=== PATIENT | female | born 1990 | race Caucasian/White ===

== ENCOUNTER 2020-10-30 12:18 | Emergency (ER) | payer OTHER, BC, SELFPAY ==
[2020-10-30] VITALS (8 sets, daily range): BP systolic 118–146; BP diastolic 56–85; PULSE 82–107; RESP 11–20; TEMP 36.6; O2SAT 94–99; BMI 25.8
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
--- NOTE | 2020-10-30 12:32 | PC.NURSE ---
Rad at bedside
[2020-10-30 13:04] LABS: HCG Qualitative, Serum Negative (Negative)
== END 2020-10-30 13:56 | disposition home or self-care (01) ==
PROVIDERS: Emergency Provider Emergency Medicine; PCP General Practice
DX: S40.012A Contusion of left shoulder, initial encounter (principal); V49.3XXA Car occupant (driver) (passenger) injured in unspecified nontraffic accident, initial encounter; Y92.488 Other paved roadways as the place of occurrence of the external cause
CPT/HCPCS: 71045; 72170; 73030; 84703; 99281

== ENCOUNTER 2021-09-10 07:00 | Emergency (ER) | payer BC, SELFPAY ==
[2021-09-10] VITALS (18 sets, daily range): BP systolic 111–146; BP diastolic 55–90; PULSE 90–106; RESP 14–18; TEMP 36.9; O2SAT 95–100; BMI 28.9; BMI 29.0
--- NOTE | 2021-09-10 07:03 | PC.NURSE ---
Nurse speaking with poison control at this time
--- NOTE | 2021-09-10 07:17 | ECG_ITS ---
APPROVED REPORT Exam: Resting ECG HR:103 bpm ECG Measurements Heart Rate 103 AXES WA 148 P 57 QRSd 92 QRS 58 QT 339 T 37 QTc 399 Conclusion SINUS TACHYCARDIA WITH OCCASIONAL VENTRICULAR PREMATURE COMPLEXES ABNORMAL RHYTHM ECG UNCONFIRMED REPORT Electronically signed by : Antonio Walker MD 09/12/2021 21:13:19
--- NOTE | 2021-09-10 07:26 | PC.NURSE ---
Passed on in nursing report from MARANDA Gallego who spoke with poison control... Nurse stated that poison control advised to monitor pt x6 hours from ingestion of Gabapentin. Stated to monitor for hypotension, ataxia, tachycardia and myoclonic-like seizures. Advised to administer activated charcoal PO.
--- NOTE | 2021-09-10 07:26 | PC.NURSE ---
Rn at [facility] as well. [employer] tier and assessing pt. PT is given charcoal to drink
[2021-09-10 07:37] LABS: Basophils # 0.2 K/mm3 (0-0.2); Basophils % 2.6 % (0.1-2.0); Eosinophils # 0.2 K/mm3 (0.0-0.4); Hematocrit 41.8 % (37.0-47.0); Hemoglobin 13.7 g/dL (12.2-16.2); Lymphocytes # 2.7 K/mm3 (0.7-4.5); Mean Corpuscular HGB Conc 32.8 g/dL (31.8-35.4); Mean Corpuscular Volume 100.7 fl (81-99); Mean Platelet Volume 7.7 fl (7.4-10.4); Monocytes # 0.5 K/mm3 (0.1-1.0); Monocytes % 5.9 % (1.7-9.3); Neutrophils # 4.3 K/mm3 (1.8-7.8); Neutrophils % 54.5 % (37.0-80.0); Platelet Count 275 K/mm3 (142-424); Red Blood Count 4.14 M/mm3 (4.20-5.40); Red Cell Distribution Width 13.8 % (11.5-17.5); White Blood Count 7.8 K/mm3 (4.8-10.8)
[2021-09-10 07:40] LABS: Microscopic, Urine URINE MICROSCOPIC (MICROSCOPIC)
--- NOTE | 2021-09-10 07:40 | PC.NURSE ---
Pt has finished drinking activated charcoal at this time. system support technician sitting at bs.
[2021-09-10 07:42] LABS: Alanine Aminotransferase 18 U/L (12-78); Albumin Level 4.2 g/dl (3.5-5.0); Albumin/Globulin Ratio 1.6 (1.1-1.8); Alkaline Phosphatase 57 U/L (38-126); Anion Gap 4.8 mEq/L (5-15); Aspartate Amino Transferase 24 U/L (14-36); Bilirubin,Total 0.2 mg/dl (0.2-1.3); Blood Urea Nitrogen 10 mg/dl (7-17); Calcium 8.7 mg/dl (8.4-10.2); Carbon Dioxide 27 mmol/L (22.0-30.0); Chloride 114 mmol/L (98-107); Creatinine Clearance Estimated 147 mL/min (50-200); Estimated Glomerular Filt Rate 96 ml/min (>60); Ethyl Alcohol 30 mg/dl (0-10); GFR (African American) 117 ML/MIN (>60); Globulin 2.6 g/dL (1.3-3.2); Glucose 86 mg/dl (74-100); Potassium 3.8 mmoL/L (3.5-5.1); Sodium 142 mmol/L (136-145); Total Protein,Serum 6.8 g/dl (6.3-8.2)
[2021-09-10 07:46] LABS: Appearance,Urine CLEAR (Clear); Bilirubin,Urine Negative (Negative); Blood, Urine Negative (Negative); Color,Urine YELLOW (Yellow); Glucose,Urine (UA) Negative (Negative); Ketones,Urine Negative (Negative); Leukocyte Esterase,Urine Negative (Negative); Nitrate,Urine Negative (Negative); Protein,Urine Negative (Negative); Specific Gravity, Urine >= 1.030 (1.005-1.030); Urobilinogen,Urine 0.2 EU/dl (0.2)
[2021-09-10 07:49] LABS: Acetaminophen < 10 ug/ml (10-30); Salicylate < 1.0 mg/dL (2.0-20.0)
--- NOTE | 2021-09-10 07:55 | HMH.EDOD ---
ED Disposition Clinical Impression: Overdose by ingestion Depression Qualifiers: Depression Type: major depressive disorder Major depression recurrence: unspecified whether recurrent Active/Remission status: currently active Psychotic features: without psychotic features Disposition: Home, Self-Care Condition on Discharge: Fair Instructions: Depression (Mild to Moderate) (Alternative Therapy) Additional Instructions: Please follow-up with your mental health fashionably within the next few days. Do this even if you feel well. Return immediately to the emergency department if you feel worse in any way. Do not drive or operate any machinery today. Your work-up in the emergency department today did not reveal any immediately life-threatening conditions. Take your medications only as prescribed. Referrals: Provider,Referral, [Primary Care Provider] - - Critical Care Critical Care Time: No Attestation: On , the high probability of a clinically significant, sudden or life threatening deterioration of the following system(s) required my full and direct attention, intervention and personal management. The time I documented below is in addition to time spent performing reported procedures but includes the following listed in this critical care notation. Medical Decision Making - Medical Records Medical records reviewed: Yes: I reviewed the patient's medical records. - Claude Inquiry Pt receiving controlled substance: No Vital Signs: 09/10/21 07:01 09/10/21 07:27 09/10/21 07:30 Temperature 98.5 F Temperature Source Oral Pulse Rate 106 H 106 H Pulse Rate [Radial] 106 H Respiratory Rate 16 15 15 Blood Pressure 119/80 128/72 Blood Pressure [Right Arm] 119/80 Blood Pressure Mean 89 89 Blood Pressure Mean [Right Arm] 93 Blood Pressure Position [Right Arm] Sitting 02 Sat by Pulse Oximetry 98 100 100 Oxygen Delivery Method Room Air 09/10/21 08:00 09/10/21 08:30 09/10/21 09:00 Temperature Temperature Source Pulse Rate 100 H 98 H 98 H Pulse Rate [Radial] Respiratory Rate 18 15 15 Blood Pressure 112/55 L 111/60 112/67 Blood Pressure [Right Arm] Blood Pressure Mean 74 71 77 Blood Pressure Mean [Right Arm] Blood Pressure Position [Right Arm] 02 Sat by Pulse Oximetry 98 95 96 Oxygen Delivery Method 09/10/21 09:15 09/10/21 09:30 09/10/21 09:45 Temperature Temperature Source Pulse Rate 100 H 97 H 97 H Pulse Rate [Radial] Respiratory Rate 14 15 Blood Pressure 120/67 118/65 121/66 Blood Pressure [Right Arm] Blood Pressure Mean 79 73 79 Blood Pressure Mean [Right Arm] Blood Pressure Position [Right Arm] 02 Sat by Pulse Oximetry 97 96 96 Oxygen Delivery Method 09/10/21 10:00 09/10/21 10:15 09/10/21 10:43 Temperature Temperature Source Pulse Rate 98 H 101 H 104 H Pulse Rate [Radial] Respiratory Rate 15 16 16 Blood Pressure 123/77 120/74 146/81 H Blood Pressure [Right Arm] Blood Pressure Mean 87 86 93 Blood Pressure Mean [Right Arm] Blood Pressure Position [Right Arm] 02 Sat by Pulse Oximetry 96 96 96 Oxygen Delivery Method 09/10/21 10:46 09/10/21 11:00 09/10/21 11:15 Temperature Temperature Source Pulse Rate 104 H 96 H 96 H Pulse Rate [Radial] Respiratory Rate 18 16 Blood Pressure 133/80 127/78 122/58 L Blood Pressure [Right Arm] Blood Pressure Mean 96 94 79 Blood Pressure Mean [Right Arm] Blood Pressure Position [Right Arm] 02 Sat by Pulse Oximetry 97 97 98 Oxygen Delivery Method 09/10/21 11:30 09/10/21 11:45 Temperature Temperature Source Pulse Rate 92 H 99 H Pulse Rate [Radial] Respiratory Rate 16 16 Blood Pressure 136/71 121/72 Blood Pressure [Right Arm] Blood Pressure Mean 89 82 Blood Pressure Mean [Right Arm] Blood Pressure Position [Right Arm] 02 Sat by Pulse Oximetry 96 96 Oxygen Delivery Method - Lab Data Lab results reviewed: Yes: I reviewed the
[2021-09-10 07:57] LABS: Barbiturates Screen,Urine Negative ng/ml (<200); Benzodiazepines Screen,Urine Negative ng/ml (<200)
[2021-09-10 07:58] LABS: Amphetamine/Metha Screen,Urine Negative ng/ml (<1000)
[2021-09-10 07:59] LABS: Cocaine Screen,Urine Negative ng/ml (<300); Methadone Screen,Urine Negative ng/ml (<300)
[2021-09-10 08:00] LABS: Cannabinoid Screen,Urine Negative ng/ml (<50); Urine Pregnancy, HCG Qual. Negative (Negative)
[2021-09-10 08:01] LABS: Opiate Screen,Urine Positive ng/ml (<300); Phencyclidine Screen,Urine Positive ng/ml (<25)
--- NOTE | 2021-09-10 08:02 | PC.NURSE ---
Md in to talk to and assess the pt
[2021-09-10 08:03] LABS: RBC,Urine Occasional #/hpf (0-3); Squamous Epithelial Cell,Urine Occasional #/hpf (0-5)
--- NOTE | 2021-09-10 08:19 | PC.NURSE ---
Pt sleeping comfortably
--- NOTE | 2021-09-10 08:31 | PC.NURSE ---
rn getting covid swab
--- NOTE | 2021-09-10 08:39 | PC.NURSE ---
pt sleeping in bed Tech at BS
[2021-09-10 08:40] LABS: Coronavirus 19, PCR Not Detected (NotDetected); Influenza A, PCR Not Detected (NotDetected); Influenza B, PCR Not Detected (NotDetected)
--- NOTE | 2021-09-10 10:33 | PC.NURSE ---
pt went to the restroom
--- NOTE | 2021-09-10 10:43 | PC.NURSE ---
pt back in bed from [facility]roo
--- NOTE | 2021-09-10 11:03 | PC.NURSE ---
pt in bed comfortably with tech @ bedside
--- NOTE | 2021-09-10 11:52 | PC.NURSE ---
pt calling mother to come get her, per Ernie MOLINA
--- NOTE | 2021-09-10 12:15 | PC.NURSE ---
pt tyronen drink and is getting dressed awaiting mother
== END 2021-09-10 13:00 | disposition home or self-care (01) ==
PROVIDERS: Emergency Provider Emergency Medicine
DX: T42.6X2A Poisoning by other antiepileptic and sedative-hypnotic drugs, intentional self-harm, initial encounter; F33.9 Major depressive disorder, recurrent, unspecified; Z79.1 Long term (current) use of non-steroidal anti-inflammatories (NSAID); Z88.0 Allergy status to penicillin; Z88.1 Allergy status to other antibiotic agents; Z88.3 Allergy status to other anti-infective agents; Z88.5 Allergy status to narcotic agent; Z20.822 Contact with and (suspected) exposure to COVID-19
CPT/HCPCS: 80053; 80305; 80329; 81001; 81025; 85025; 93005; 99285; C9803; U0003; U0005

== ENCOUNTER 2021-12-19 23:14 | Emergency (ER) | payer BC, SELFPAY ==
[2021-12-19 23:50] VITALS: BP 141/95; PULSE 90; RESP 18; TEMP 36.6; O2SAT 99; BMI 30.7
--- NOTE | 2021-12-20 00:02 | CT_ITS ---
PROCEDURE INFORMATION: Exam: CT Abdomen And Pelvis With Contrast Exam date and time: 12/20/2021 12:45 AM Age: 31 years old Clinical indication: Abdominal pain; Additional info: Abd pain TECHNIQUE: Imaging protocol: Computed tomography of the abdomen and pelvis with contrast. Radiation optimization: All CT scans at this facility use at least one of these dose optimization techniques: automated exposure control; mA and/or kV adjustment per patient size (includes targeted exams where dose is matched to clinical indication); or iterative reconstruction. Contrast material: ISOVUE; Contrast volume: 75 ml; Contrast route: IV; COMPARISON: CR XR PELVIS 1-2V 10/30/2020 12:25 PM FINDINGS: Diaphragm: Small hiatal hernia. Liver: Unremarkable. Gallbladder and bile ducts: Status post cholecystectomy. Pancreas: Unremarkable. Spleen: Unremarkable. Adrenal glands: Unremarkable. Kidneys and ureters: Non-obstructing 5 mm stone in the right renal pelvis. No other renal or ureteral stones. No hydronephrosis. Chronic compression fracture deformities and L2 on L3. Stomach and bowel: Unremarkable. Appendix: Calcifications within the appendix compatible with appendicoliths. Appendix is normal in caliber without evidence of acute inflammation. Intraperitoneal space: No free fluid. No pneumoperitoneum. Vasculature: Unremarkable. Lymph nodes: Unremarkable. Urinary bladder: Unremarkable. Reproductive: Unremarkable. Bones/joints: No acute osseous abnormality or suspicious bone lesions. Soft tissues: Unremarkable. IMPRESSION: 1. No acute findings in the abdomen or pelvis. 2. Calcifications within the appendix compatible with appendicoliths. No evidence of appendicitis. 3. Non-obstructing right renal stone. 4. Small hiatal hernia.
[2021-12-20 00:11] LABS: Coronavirus 19, PCR Not Detected (NotDetected); Influenza A, PCR Not Detected (NotDetected); Influenza B, PCR Not Detected (NotDetected); Microscopic, Urine URINE MICROSCOPIC (MICROSCOPIC)
[2021-12-20 00:21] LABS: Basophils # 0.1 K/mm3 (0-0.2); Basophils % 1.6 % (0.1-2.0); Eosinophils # 0.3 K/mm3 (0.0-0.4); Eosinophils % 4.8 % (0.1-12.0); Hematocrit 47.2 % (37.0-47.0); Hemoglobin 14.8 g/dL (12.2-16.2); Lymphocytes # 1.5 K/mm3 (0.7-4.5); Lymphocytes % 28.6 % (10-50); Mean Corpuscular HGB Conc 31.3 g/dL (31.8-35.4); Mean Corpuscular Hemoglobin 31.9 pg (27.0-31.2); Mean Corpuscular Volume 101.9 fl (81-99); Mean Platelet Volume 7.8 fl (7.4-10.4); Monocytes # 0.3 K/mm3 (0.1-1.0); Monocytes % 4.9 % (1.7-9.3); Neutrophils # 3.2 K/mm3 (1.8-7.8); Neutrophils % 60.1 % (37.0-80.0); Platelet Count 345 K/mm3 (142-424); Red Blood Count 4.63 M/mm3 (4.20-5.40); Red Cell Distribution Width 13.5 % (11.5-17.5); White Blood Count 5.4 K/mm3 (4.8-10.8)
[2021-12-20 00:22] LABS: Appearance,Urine CLEAR (Clear); Bilirubin,Urine Negative (Negative); Blood, Urine Negative (Negative); Color,Urine YELLOW (Yellow); Glucose,Urine (UA) Negative (Negative); Ketones,Urine Negative (Negative); Leukocyte Esterase,Urine Negative (Negative); Nitrate,Urine Negative (Negative); PH,Urine 7.5 (5.0-8.5); Protein,Urine 1+ (Negative); Urobilinogen,Urine 0.2 EU/dl (0.2)
[2021-12-20 00:23] LABS: Amylase 119 U/L (30-110)
[2021-12-20 00:24] LABS: Alanine Aminotransferase 25 U/L (12-78); Albumin Level 4.7 g/dl (3.5-5.0); Albumin/Globulin Ratio 1.3 (1.1-1.8); Alkaline Phosphatase 73 U/L (38-126); Anion Gap 14.7 mEq/L (5-15); Aspartate Amino Transferase 32 U/L (14-36); Bilirubin,Total 0.6 mg/dl (0.2-1.3); Blood Urea Nitrogen 10 mg/dl (7-17); Calcium 9.6 mg/dl (8.4-10.2); Carbon Dioxide 26 mmol/L (22.0-30.0); Chloride 103 mmol/L (98-107); Creatinine Clearance Estimated 156 mL/min (50-200); Estimated Glomerular Filt Rate 96 ml/min (>60); GFR (African American) 117 ML/MIN (>60); Globulin 3.5 g/dL (1.3-3.2); Glucose 94 mg/dl (74-100); Lipase 106 U/L (23-300); Potassium 4.7 mmoL/L (3.5-5.1); Sodium 139 mmol/L (136-145); Total Protein,Serum 8.2 g/dl (6.3-8.2)
[2021-12-20 00:25] LABS: Urine Pregnancy, HCG Qual. Negative (Negative)
[2021-12-20 00:27] LABS: Bacteria,Urine 1+ /lpf; WBC,Urine Occasional #/hpf (0-3)
--- NOTE | 2021-12-20 00:29 | HMH.EDNVD ---
ED Disposition Clinical Impression: Enteritis Disposition: Home, Self-Care Condition on Discharge: Good Instructions: DI for Diarrhea and Traveler's Diarrhea -- Adult Additional Instructions: fluids and see pcp Referrals: Domi Verdugo [Primary Care Provider] - - Critical Care Critical Care Time: No Attestation: On 12/19/21, the high probability of a clinically significant, sudden or life threatening deterioration of the following system(s) required my full and direct attention, intervention and personal management. The time I documented below is in addition to time spent performing reported procedures but includes the following listed in this critical care notation. Medical Decision Making - Medical Records Medical records reviewed: Yes: I reviewed the patient's medical records. - Claude Inquiry Pt receiving controlled substance: No Vital Signs: 12/19/21 23:50 12/20/21 01:00 Temperature 98 F Temperature Source Oral Pulse Rate 89 Pulse Rate [Apical] 90 Respiratory Rate 18 Blood Pressure 129/73 Blood Pressure [Right Arm] 141/95 H Blood Pressure Mean [Right Arm] 110 Blood Pressure Source [Right Arm] Automatic Cuff Blood Pressure Position [Right Arm] Sitting 02 Sat by Pulse Oximetry 99 100 Oxygen Delivery Method Room Air Room Air - Lab Data Lab results reviewed: Yes: I reviewed the patient's lab results. Lab Results 12/20/21 00:01: C-Reactive Protein 0.4, Amylase 119 H 12/20/21 00:01: Urine Color Yellow, Urine Appearance Clear, Urine pH 7.5, Ur Specific [place] 1.010, Urine Protein 1+, Urine Glucose (UA) Negative, Urine Ketones Negative, Urine Blood Negative, Urine Nitrate Negative, Urine Bilirubin Negative, Urine Urobilinogen 0.2, Ur Leukocyte Esterase Negative, Urine RBC None, Urine WBC Occasional, Ur Squamous Epith Cells 10-20, Urine Bacteria 1+ 12/20/21 00:01: WBC 5.4, RBC 4.63, Hgb 14.8, Hct 47.2 H, MCV 101.9 H, MCH 31.9 H, MCHC 31.3 L, RDW 13.5, Plt Count 345, MPV 7.8, Neut % (Auto) 60.1, Lymph % (Auto) 28.6, [place] % (Auto) 4.9, Eos % (Auto) 4.8, Baso % (Auto) 1.6, Neut # (Auto) 3.2, Lymph # (Auto) 1.5, [place] # (Auto) 0.3, Eos # (Auto) 0.3, Baso # (Auto) 0.1, ESR 7 12/20/21 00:01: Urine HCG, Qual Negative 12/20/21 00:01: Sodium 139, Potassium 4.7, Chloride 103, Carbon Dioxide 26, Anion Gap 14.7, BUN 10, Creatinine 0.70, Estimated Creat Clear 156, Estimated GFR 96, Est GFR ( Amer) 117, Glucose 94, Calcium 9.6, Total Bilirubin 0.6, AST 32, ALT 25, Alkaline Phosphatase 73, Total Protein 8.2, Albumin 4.7, Globulin 3.5 H, Albumin/Globulin Ratio 1.3, Lipase 106, Procalcitonin 0.080 12/20/21 00:01: SARS-CoV-2 (PCR) Not detected, Influenza A Untype (PCR) Not detected, Influenza Type B (PCR) Not detected 12/20/21 02:00: Stl Aeromonas (PCR) Not detected, Stl C. cayetanensis PCR Not detected, Stool Rotavirus (PCR) Not detected, Stl Adenov F 40/41 PCR Not detected, Stool Astrovirus (PCR) Not detected, Stool Campylobacter PCR Not detected, Stl C.difficile Tox PCR Not detected, Stool Cryptosporidium PCR Not detected, Stl E.coli Shiga Tox PCR Not detected, Stool E coli O157 PCR Not detected, Stl Enterotoxigenic E PCR Not detected, Stool EPEC (PCR) Detected A, Stool EAEC (PCR) Not detected, Stl E. histolytica PCR Not detected, Stool Giardia Lamblia PCR Not detected, Stool Salmonella PCR Not detected, Stool Sapovirus (PCR) Not detected, Stl P. shigelloides PCR Not detected, Stl Shigella/EIEC PCR Not detected, St Y.enterocolitica PCR Not detected, Stool Vibrio (PCR) Not detected, Stl Vibrio cholerae PCR Not detected, Stl Norovirus GI/GII PCR Not detected Result diagrams: 12/20/21 00:01 12/20/21 00:01 Orders (Tests/Meds): ED MEDICATIONS Generic Name Dose Route Start Last Admin Trade Name Freq PRN Reason Stop Dose Admin Sodium Chloride 1,000 mls @ 999 mls/hr 12/20/21 00:15 12/20/21 00:09 Sod Chlor 0.9% 1000ml Bag IV 12/20/21 01:15 999 mls/hr .Q1H1M AMAURY Administration Sodium Chloride 1,000 mls
[2021-12-20 00:30] LABS: C-Reactive Protein 0.4 mg/L (0-4)
[2021-12-20 01:00] VITALS: BP 129/73; PULSE 89; O2SAT 100
[2021-12-20 01:08] LABS: Erythrocyte Sedimentation Rate 7 mm/hr (0-20)
--- NOTE | 2021-12-20 01:56 | PC.NURSE ---
Pt ambulatory to bathroom. Pt voiced no other needs or complaints at this time.
[2021-12-20 02:17] LABS: Adenovirus F 40/41, stool Not Detected (NotDetected); Astrovirus Not Detected (NotDetected); Campylobacter Not Detected (NotDetected); Clostridium Difficile A/B, PCR Not Detected (NotDetected); Cryptosporidium Not Detected (NotDetected); Cyclospora Cayetanesis Not Detected (NotDetected); Entamoeba histolytica Not Detected (NotDetected); Enteroaggregative E coli Not Detected (NotDetected); Enterotoxigenic E coli Not Detected (NotDetected); Giardia lamblia Not Detected (NotDetected); Norovirus Not Detected (NotDetected); Plesimonas Shigalloides, PCR Not Detected (NotDetected); Rotavirus A Not Detected (NotDetected); Salmonella, PCR Not Detected (NotDetected); Sapovirus Not Detected (NotDetected); Shiga-like toxin E coli Not Detected (NotDetected); Shigella Enterovasive E coli Not Detected (NotDetected); Vibrio Cholerae Not Detected (NotDetected); Vibrio, PCR Not Detected (NotDetected); Yersinia Entercolitica, PCR Not Detected (NotDetected)
[2021-12-20 04:11] LABS: Enteropathogenic E coli Detected (NotDetected)
[2021-12-20 05:07] VITALS: BP 125/72; PULSE 88; RESP 18; TEMP 36.6; O2SAT 99
== END 2021-12-20 05:10 | disposition home or self-care (01) ==
PROVIDERS: Emergency Provider Emergency Medicine; PCP General Practice
DX: A04.0 Enteropathogenic Escherichia coli infection (principal); Z88.0 Allergy status to penicillin; Z88.1 Allergy status to other antibiotic agents; Z88.5 Allergy status to narcotic agent
CPT/HCPCS: 74177; 80053; 81001; 81025; 82150; 83690; 84145; 85025; 85651; 86140; 87507; 96365; 96366; 96375; 99285; C9803; J2405; Q9967; U0003; U0005